=== PATIENT | female | born 1985 | race Caucasian/White ===

== ENCOUNTER → 2019-05-08 | Outpatient (CLI) | payer OTHER | LOC: HYPER 11:56 | DX: L97.311 Non-pressure chronic ulcer of right ankle limited to breakdown of skin (principal); L84 Corns and callosities; I87.2 Venous insufficiency (chronic) (peripheral); R21 Rash and other nonspecific skin eruption ==

== ENCOUNTER → 2021-01-13 | Outpatient (CLI) | payer OTHER | LOC: SJCVCIMAG 11:20 | PROVIDERS: ATTEND Nuclear Medicine Nuclear Cardiology | DX: I87.2 Venous insufficiency (chronic) (peripheral) (principal); I87.309 Chronic venous hypertension (idiopathic) without complications of unspecified lower extremity; M79.89 Other specified soft tissue disorders; Z98.890 Other specified postprocedural states; Z79.899 Other long term (current) drug therapy ==

== ENCOUNTER → 2021-02-16 | Outpatient (CLI) | payer OTHER ==
[~2021-02-16] VITALS: Ht 182.9 cm; Wt 147.7 kg
[~2021-02-16] MED LIST: ZYRTEC10 M5 PO
[2021-02-16 14:16] VITALS: BP 136/78
--- NOTE | 2021-02-17 08:28 | NUR ---
02/17/21 0830-CALLED PATIENT AND LEFT MESSAGE FOR PATIENT TO TAKE IBUPROFEN [id number] [id number] NEEDED FOR PERSISTENT HIP PAIN PER DR BELLA. INSTRUCTED IN MESSAGE TO CALL BACK THAT SHE RECEIVED THE MESSAGE. CALLED WELL AND MESSAGE LEFT ON HIS PHONE.
== END | disposition home or self-care (01) ==
LOC: CATH 02-08 08:40
PROVIDERS: ATTEND Nuclear Medicine Nuclear Cardiology
DX: I87.321 Chronic venous hypertension (idiopathic) with inflammation of right lower extremity (principal); M79.604 Pain in right leg; R22.41 Localized swelling, mass and lump, right lower limb; Z98.890 Other specified postprocedural states